=== PATIENT | female | born 1995 | race Caucasian/White ===

== ENCOUNTER 2020-04-12 12:27 | Outpatient (CLI) | payer OTHER | END 2020-04-12 12:28 | disposition home or self-care (01) | LOC: COV 12:27 | PROVIDERS: ATTEND Family Medicine | DX: R07.0 Pain in throat (principal); Z20.828 Contact with and (suspected) exposure to other viral communicable diseases ==

== ENCOUNTER 2020-08-31 08:00 | Outpatient (CLI) | payer OTHER ==
--- NOTE | 2020-08-31 16:10 | XRAY Report ---
PROCEDURE: Foot 3 View LT INDICATIONS: LEFT FOOT SPRAIN TECHNIQUE: 3 views of the foot were acquired. COMPARISON: FINDINGS: Bones: No fractures or dislocations. No suspicious bony lesions. Soft tissues: No tibiotalar joint effusion. Achilles tendon appears normal. IMPRESSION: No visualized acute fracture or dislocation. However, occult injury cannot be excluded. Recommend bar rt interval imaging follow-up in 7-10 days as clinically indicated for additional evaluation. Reviewed by: Symone Erazo MD on 08/31/2020 4:08 PM PDT Approved by: Symone Erazo MD on 08/31/2020 4:08 PM PDT Station ID: [id number]
== END 2020-08-31 23:59 | disposition home or self-care (01) ==
LOC: DI.S 08:00
PROVIDERS: ATTEND Emergency Medicine
DX: S93.622A Sprain of tarsometatarsal ligament of left foot, initial encounter (principal)

== ENCOUNTER 2020-11-01 08:00 | Outpatient (CLI) | payer OTHER ==
[2020-11-01 15:04] LABS: BILIRUBIN,URINE NEGATIVE (NEGATIVE); GLUCOSE, URINE (UA) NEGATIVE (NEGATIVE); KETONES,URINE (UA) NEGATIVE (NEGATIVE); LEUKOCYTE ESTERASE, URINE LARGE (NEGATIVE); NITRITE,URINE NEGATIVE (NEGATIVE); OCCULT BLOOD,URINE LARGE (NEGATIVE); PH,URINE 7.5 PH (5.0-7.5); PROTEIN,URINE NEGATIVE (NEGATIVE); UROBILINOGEN,URINE 0.2 (NORMAL) E.U./dL (NORMAL)
[2020-11-01 15:10] LABS: CLARITY,URINE CLOUDY (CLEAR)
[2020-11-01 15:29] LABS: BACTERIA,URINE Rare /HPF (None Seen); RBC,URINE 0-5 /HPF (0-5); SQUAMOUS EPITHELIAL CELL,UR RARE Squamous (<= Few)
[2020-11-01 15:30] LABS: MUCUS,URINE Few Strands
== END 2020-11-01 23:59 | disposition home or self-care (01) ==
LOC: LAB.S 08:00
PROVIDERS: ATTEND Emergency Medicine
DX: R30.0 Dysuria (principal)
CPT/HCPCS: 81001; 87086

== ENCOUNTER 2021-09-12 20:00 | Emergency (ER) | payer OTHER ==
[2021-09-12] MEDS ORDERED: ONDANSETRON 4 MG/2 ML VIAL IVP STA (20:17)
--- NOTE | 2021-09-12 20:35 | ED Physician Documentation ---
PD HPI FEMALE - Stated complaint Stated Complaint: BLEED/VOMIT/FEVER/ABD PX - Chief complaint Chief Complaint: Abd Pain - History obtained from History obtained from: Patient - History of Present Illness Timing - onset: Today Timing - details: Gradual onset, Waxing and waning Pain level max: 6 Associated symptoms: Vaginal bleeding. 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 She took the first medication yesterday (mifepristone) and today took misoprostol. She took the medication today at approximately 1 PM and subsequently has had increasing pelvic cramping. Her chief complaint at this time is pelvic cramping that is severe and uncontrolled with OTC medication (she took prescribed ibuprofen and called this evening to [facility] and was advised to also take acetaminophen, but this has not provided adequate relief of pelvic cramping pain). She has had vaginal bleeding with some clots, as well as diarrhea. Review of Systems Constitutional: reports: Reviewed and negative GI: reports: Reviewed and negative : reports: Vaginal bleeding. denies: Dysuria, Frequency PD PAST MEDICAL HISTORY - Past Medical History Past Medical History: Yes Respiratory: Asthma - Past Surgical History Past Surgical History: No - Present Medications Home Medications: Ambulatory Orders Medication Instructions Recorded Confirmed LORazepam [Ativan] 0.5 - 1 mg PO HS PRN #10 tablet 09/13/21 traMADol [Ultram] 50 - 100 mg PO Q6H PRN #14 tablet 09/13/21 - Allergies Allergies/Adverse Reactions: Allergies Allergy/AdvReac Type Severity Reaction Status Date / Time Sulfa (Sulfonamide Allergy Unknown Verified 09/12/21 20:12 Antibiotics) - Social History Does the pt smoke?: No Smoking Status: Never smoker Does the pt drink ETOH?: Yes Does the pt have substance abuse?: No - Immunizations Immunizations are current?: Yes PD ED PE NORMAL - Vitals Vital signs reviewed: Yes - General General: Alert and oriented X 3, No acute distress, Well developed/nourished - Cardiac Cardiac: RRR, No murmur - Respiratory Respiratory: No respiratory distress, Clear bilaterally - Abdomen Abdomen: Soft, Non tender - Back Back: No CVA TTP Results - Vitals Vitals: Oxygen O2 Source Room air - Labs Labs: Laboratory Tests 09/12/21 09/12/21 09/12/21 20:30 20:30 20:30 WBC 13.3 H RBC 4.29 Hgb 13.0 Hct 37.3 MCV 86.9 MCH 30.3 MCHC 34.9 RDW 12.4 Plt Count 258 MPV 10.5 Neut # (Auto) 12.1 H Lymph # (Auto) 0.8 L [place] # (Auto) 0.4 Eos # (Auto) 0.0 Baso # (Auto) 0.0 Absolute Nucleated RBC 0.00 Nucleated RBC % 0.0 Sodium 133 L Potassium 3.6 Chloride 100 L Carbon Dioxide 22 Anion Gap 11.0 BUN 9 Creatinine 0.6 Estimated GFR (MDRD) 119 Glucose 114 H Calcium 9.1 HCG, Quant 57597.00 Blood Type 09/12/21 20:30 WBC RBC Hgb Hct MCV MCH MCHC RDW Plt Count MPV Neut # (Auto) Lymph # (Auto) [place] # (Auto) Eos # (Auto) Baso # (Auto) Absolute Nucleated RBC Nucleated RBC % Sodium Potassium Chloride Carbon Dioxide Anion Gap BUN Creatinine Estimated GFR (MDRD) Glucose Calcium HCG, Quant Blood Type A NEGATIVE - Rads (name of study) pelvic US Radiology: Prelim report reviewed, See rad report PD MEDICAL DECISION MAKING - ED course Complexity details: reviewed results, re-evaluated patient, considered differential, d/w patient ED course: chief complaint of pelvic cramping pain after taking misoprostol prescribed by [facility] to terminate 6 week . She is given toradol and morphine IV with zofran IV for prophylaxis against nausea. US shows thickened heterogeneous endometrium. I discussed this case with Dr. Whittington, coagulation operator senior data developer; result of this discussion is patient is safe and appropriate for d/c home, and Dr. Whittington came to ED and evaluated patient. Patient was given second dose of morphine and then dose of lorazepam for anxiety and to augment effect of the morphine. Ultram prescribed and return precautions d/w patient. She is comfortable with plan to d/c on reevaluation. Departure - Departure Disposition: 01 Home, Self Care Clinical Impression: Pelvic cramping Condition: Good Instructions: ED Pelvic Pain UKO Prescriptions: LORazepam [Ativan] 0.5 - 1 mg PO HS PRN #10 tablet PRN Reason: Insomnia traMADol [Ultram] 50 - 100 mg PO Q6H PRN #14 tablet PRN Reason: Pain Comments: The cause of your pelvic pain is the medications provided by [facility]; pelvic cramping, vaginal bleeding, and diarrhea are all expected with the misoprostol. When the pain is not controlled with medications at home, it is appropriate to come to the emergency department for better pain control as you did tonight. The tests performed tonight do not indicate any problems/complications at this time. Prescriptions for tramadol (pain medication) and lorazepam (anti-anxiety medication but being prescribed for you to help with sleep for the next few nights as needed) have been electronically submitted to [facility] in [place]. I am prescribing a short course of narcotic pain medication for you. These are potentially dangerous and addictive medications that should be used carefully. These medications may constipate you. Take an ecqz-yyo-ohkcdmw stool softener (docusate) twice daily with plenty of water while taking these medications. If you go 24 hours without a bowel movement, take rlhz-yzv-zoknfxv miralax, per package instructions. Do not drink or drive while taking these medications. If you received narcotic or sedating medications while in the emergency department, do not drive for 24 hours. Store this medication in a safe, secure place and out of reach of children. It is a violation of federal law to give or sell this medication to another person or to use in a manner other than prescribed. The ED will not refill narcotic prescriptions, including prescriptions lost or stolen. To dispose of unwanted medications: 1. [facility] at [address] in [place] has a medication drop box. They accept prescription medications (in pill form) Saturday through Saturday 9:00 a.m. to 5:00 p.m. 2. The [facility] [employer] accepts prescription medications (in pill form only) for disposal year round. Call for more information. 3. Contact the [facility] for the next [facility] sponsored prescription drug collection event. , [phone], or [phone]; Discharge Date/Time: 09/13/21 01:22
[2021-09-12] MEDS ORDERED: KETOROLAC 30 MG/ML VIAL IVP STA (20:38)
[2021-09-12 20:46] LABS: BASOPHILS % (AUTO) 0.2 %; HCT - HEMATOCRIT 37.3 % (37.0-47.0); LYMPHOCYTES # (AUTO) 0.8 10^3/uL (1.5-3.5); MEAN CORPUSCULAR HEMOGLOBIN 30.3 pg (27.0-31.0); MEAN CORPUSCULAR HGB CONC 34.9 g/dL (32.0-36.0); MEAN CORPUSCULAR VOLUME 86.9 fL (81.0-99.0); MEAN PLATELET VOLUME 10.5 fL (7.9-10.8); MONOCYTES # (AUTO) 0.4 10^3/uL (0.0-1.0); MONOCYTES % (AUTO) 2.9 %; NEUTROPHILS # (AUTO) 12.1 10^3/uL (1.5-6.6); NEUTROPHILS % (AUTO) 90.5 %; PLT - PLATELET COUNT 258 10^3/uL (130-450); RED BLOOD COUNT 4.29 10^6/uL (4.20-5.40); RED CELL DISTRIBUTION WIDTH 12.4 % (12.0-15.0); WHITE BLOOD COUNT 13.3 x10^3/uL (4.8-10.8)
[2021-09-12 21:00] LABS: CALCIUM 9.1 mg/dL (8.5-10.3); CREATININE 0.6 mg/dL (0.4-1.0); POTASSIUM 3.6 mmol/L (3.5-5.0)
[2021-09-12] MEDS ORDERED: MORPHINE 2 MG/ML CARPUJECT IVP STA ×2 (21:07→22:24)
--- NOTE | 2021-09-12 22:45 | Ultrasound Report ---
PROCEDURE: Pelvic w/Transvaginal INDICATIONS: POST PAIN TECHNIQUE: Real-time scanning was performed of the pelvic organs, with image documentation. Additional endovagi nal scanning was necessary due to incomplete visualization of the adnexal and endometrial structures by transabdominal scanning. COMPARISON: None. FINDINGS: Uterus: Uterus is anteverted and measures 8.8 x 5 x 6.1 cm. Endometrium is thickened, measuring up t o 1.7 cm, and heterogeneous in appearance. No definite associated increased vascularity on color Dopp ler interrogation. Ovaries: The right ovary measures 2.9 x 2.3 x 2.7 cm with a related volume of 9.2 mL and the left ov cornelio measures 3.1 x 1 x 2.7 cm with a calculated volume of 4.4 mL. No adnexal masses. There is a small amount of free fluid which appears within physiologic limits IMPRESSION: 1. Thickened heterogeneous appearance of the endometrium. Although no increased internal vascularity is demonstrated, given patient's history, the findings are suspicious for retained products of concep tion. Reviewed by: Zac Griffith MD on 09/12/2021 10:44 PM PDT Approved by: Zac Griffith MD on 09/12/2021 10:44 PM PDT Station ID: [id number]
[2021-09-13] MEDS ORDERED: traMADol 50 MG TABLET PO STA (01:06)
[2021-09-13] MEDS ORDERED: LORazepam 0.5 MG TABLET PO STA (01:06)
[2021-09-13 01:22] VITALS: BP 110/62
== END 2021-09-13 01:22 | disposition home or self-care (01) ==
LOC: ED 20:00
DX: R10.2 Pelvic and perineal pain (principal)
CPT/HCPCS: 36415; 76830; 76856; 80048; 84702; 85025; 86900; 86901; 96374; 96375; 96376; 99284; A9270

== ENCOUNTER 2023-02-02 12:00 | Emergency (ER) | payer MEDICAID, OTHER ==
[2023-02-02 12:13] VITALS: BP 142/99; O2SAT 98
[2023-02-02 12:24] LABS: BASOPHILS # (AUTO) 0.1 10^3/uL (0.0-0.1); EOSINOPHILS # (AUTO) 0.1 10^3/uL (0.0-0.7); EOSINOPHILS % (AUTO) 2.2 %; HCT - HEMATOCRIT 40.4 % (37.0-47.0); HGB - HEMOGLOBIN 13.6 g/dL (12.0-16.0); LYMPHOCYTES # (AUTO) 1.9 10^3/uL (1.5-3.5); MEAN CORPUSCULAR HEMOGLOBIN 29.1 pg (27.0-31.0); MEAN CORPUSCULAR HGB CONC 33.7 g/dL (32.0-36.0); MEAN CORPUSCULAR VOLUME 86.3 fL (81.0-99.0); MEAN PLATELET VOLUME 10.2 fL (7.9-10.8); MONOCYTES # (AUTO) 0.5 10^3/uL (0.0-1.0); MONOCYTES % (AUTO) 9.1 %; NEUTROPHILS # (AUTO) 3.2 10^3/uL (1.5-6.6); NEUTROPHILS % (AUTO) 55.5 %; PLT - PLATELET COUNT 262 10^3/uL (130-450); RED BLOOD COUNT 4.68 10^6/uL (4.20-5.40); RED CELL DISTRIBUTION WIDTH 12.5 % (12.0-15.0); WHITE BLOOD COUNT 5.8 x10^3/uL (4.8-10.8)
[2023-02-02 12:30] LABS: BILIRUBIN,URINE NEGATIVE (NEGATIVE); GLUCOSE, URINE (UA) NEGATIVE (NEGATIVE); KETONES,URINE (UA) NEGATIVE (NEGATIVE); LEUKOCYTE ESTERASE, URINE NEGATIVE (NEGATIVE); NITRITE,URINE NEGATIVE (NEGATIVE); OCCULT BLOOD,URINE NEGATIVE (NEGATIVE); PROTEIN,URINE NEGATIVE (NEGATIVE); UROBILINOGEN,URINE 0.2 (NORMAL) E.U./dL (NORMAL)
[2023-02-02 12:31] LABS: CLARITY,URINE CLEAR (CLEAR); HCG UR QUAL NEGATIVE
[2023-02-02 12:37] LABS: ALBUMIN 4.6 g/dL (3.2-5.5); ALBUMIN/GLOBULIN RATIO 1.7 (1.0-2.2); BILIRUBIN,TOTAL 0.8 mg/dL (0.2-1.0); CALCIUM 9.6 mg/dL (8.5-10.3); CREATININE 0.8 mg/dL (0.6-1.3); POTASSIUM 3.9 mmol/L (3.5-4.5); TOTAL PROTEIN 7.3 g/dL (6.4-8.9)
--- NOTE | 2023-02-02 13:10 | ED Physician Documentation ---
History of Present Illness - Stated complaint Stated Complaint: LOWER RT ABD PX - Chief complaint Chief Complaint: Abd Pain - Additonal information Additional information: 27-year-old female presents emergency department for evaluation of 2 weeks intermittent but now constant right lower quadrant abdominal pain. She states that when it first started it was sharp and stabbing. But mild in intensity only a 1 or 2. Over the course of time its become more persistent now measuring a level 6. She states she is taken nothing for pain and she did not know what she would be treating. She is mostly concerned this could be an ovarian cyst or ovarian cancer as her mom has ovarian cancer. Denies any pertinent past surgical history. Takes no prescribed medications at this time. Review of Systems Constitutional: denies: Fever Throat: reports: Reviewed and negative Cardiac: reports: Reviewed and negative Respiratory: reports: Reviewed and negative GI: reports: Abdominal Pain. denies: Nausea, Vomiting, Constipation : denies: Dysuria Skin: reports: Reviewed and negative Musculoskeletal: reports: Reviewed and negative PD PAST MEDICAL HISTORY - Past Medical History Respiratory: Asthma - Past Surgical History Past Surgical History: No - Present Medications Home Medications: Ambulatory Orders Medication Instructions Recorded Confirmed No Known Home Medications 02/02/23 02/02/23 - Allergies Allergies/Adverse Reactions: Allergies Allergy/AdvReac Type Severity Reaction Status Date / Time Sulfa (Sulfonamide Allergy Unknown Verified 09/12/21 20:12 Antibiotics) - Social History Does the pt smoke?: No Smoking Status: Never smoker Does the pt drink ETOH?: Yes Does the pt have substance abuse?: No - Immunizations Immunizations are current?: Yes PD ED PE NORMAL - General General: Alert and oriented X 3, No acute distress, Well developed/nourished - HEENT HEENT: Atraumatic, Moist mucous membranes - Cardiac Cardiac: RRR, No murmur - Respiratory Respiratory: No respiratory distress, Clear bilaterally - Abdomen Abdomen: Normal bowel sounds, Soft. No: Non tender (minimal tenderness elicited with deep or light palpation; no percussion tenderness. no flank or CV tenderness. negative mcburneys) - Back Back: No CVA TTP - Derm Derm: Normal color - Extremities Extremities: No deformity - Neuro Neuro: Alert and oriented X 3 Eye Opening: Spontaneous Motor: Obeys Commands Verbal: Oriented GCS Score: 15 Results - Vitals Vitals: Vital Signs - 24 hr 02/02/23 12:09 Temperature 36.7 C Heart Rate 55 L Respiratory 16 Rate Blood Pressure 142/99 H O2 Saturation 98 Oxygen O2 Source Room air - Labs Labs: Laboratory Tests 02/02/23 02/02/23 02/02/23 12:19 12:19 12:24 WBC 5.8 RBC 4.68 Hgb 13.6 Hct 40.4 MCV 86.3 MCH 29.1 MCHC 33.7 RDW 12.5 Plt Count 262 MPV 10.2 Neut # (Auto) 3.2 Lymph # (Auto) 1.9 [place] # (Auto) 0.5 Eos # (Auto) 0.1 Baso # (Auto) 0.1 Absolute Nucleated RBC 0.00 Nucleated RBC % 0.0 Sodium 136 Potassium 3.9 Chloride 103 Carbon Dioxide 27 Anion Gap 6.0 BUN 10 Creatinine 0.8 Estimated GFR (MDRD) 85 L Glucose 91 Calcium 9.6 Total Bilirubin 0.8 AST 21 ALT 38 Alkaline Phosphatase 45 Total Protein 7.3 Albumin 4.6 Globulin 2.7 Albumin/Globulin Ratio 1.7 Lipase 72 Urine Color YELLOW Urine Clarity CLEAR Urine pH 7.0 Ur Specific [place] <=1.005 Urine Protein NEGATIVE Urine Glucose (UA) NEGATIVE Urine Ketones NEGATIVE Urine Occult Blood NEGATIVE Urine Nitrite NEGATIVE Urine Bilirubin NEGATIVE Urine Urobilinogen 0.2 (NORMAL) Ur Leukocyte Esterase NEGATIVE Ur Microscopic Review NOT INDICATED Urine Culture Comments NOT INDICATED Urine HCG, Qual NEGATIVE - Rads (name of study) CT abd Relevant Findings:: Final report received (Normal appendix. No focal right lower quadrant inflammatory changes seen. 2.1 cm rim-enhancing left ovarian cyst which is likely related to a hemorrhagic cyst.) pelvic US Relevant Findings:: Final report received (1.7 cm left ovarian cyst.) PD Medical Decision Making - ED course Complexity details: reviewed results, re-evaluated patient, d/w patient ED course: 27-year-old female presents the emergency department for evaluation of 2 weeks right lower quadrant abdominal pain. Initially intermittent but then when more constant. No fevers nausea or vomiting. She was concerned she could have ovarian cancer or cysts. On exam there was some minimal but nonperitoneal right lower quadrant tenderness negative McBurney's. A exam of her laboratory results showed no abnormalities with the hemoglobin or electrolytes. Urinalysis showed no signs of infection. She is not . Subsequently I discussed with patient the benign abdominal exam and likelihood that this intermittent pain may represent ovarian cysts. However she was quite concerned about the possibility of cancer given her mother's recent diagnosis. Subsequently a CT of the abdomen was completed that showed a left ovarian cysts and in follow-up an ultrasound of the abdomen also showed a left ovarian cyst but no obvious pathology on the right side of the abdomen. I discussed these findings with the patient advise follow-up with PCP. Recommend Tylenol Motrin for analgesia. The usual emergent return precautions for worsening symptoms was discussed. Departure - Departure Disposition: Home, Self Care Clinical Impression: RLQ abdominal pain Condition: Stable Record reviewed to determine appropriate education?: Yes Comments: Mar you have had about 2 weeks of pain in the right lower quadrant of your abdomen. As discussed at the bedside your laboratory results were all without worrisome findings. CT of the abdomen showed no findings of appendicitis kidney or ureter stones. There was a finding made of a 1.7 cm left ovarian cyst. However no ovarian cyst was seen on the right. Ultrasound also confirmed this result. At this time is not clear what the cause of your lower abdominal discomfort is. I recommend taking Tylenol or Motrin [id number]-[id number] for discomfort. Please discuss this ED visit with your primary care doctor. Reasons to return to the emergency department would be the development of any fever, severe abdominal pain, uncontrolled vomiting, black or bloody stools. Forms: PCP List
--- NOTE | 2023-02-02 14:26 | CT Report ---
PROCEDURE: ABDOMEN/PELVIS W INDICATIONS: RLQ abd pain CONTRAST: 100ml omni 300 TECHNIQUE: After the administration of IV contrast, 5 mm thick sections acquired from the diaphragms to the symp hysis. 5 mm thick coronal and sagittal reformats were acquired. For radiation dose reduction, the f ollowing was used: automated exposure control, adjustment of mA and/or kV according to patient size. COMPARISON: Pelvic ultrasound, 09/12/2021 FINDINGS: Image quality: Excellent. Lung bases and heart: Unremarkable. Liver: No solid mass. Gallbladder and biliary tree: Within normal limits. Spleen: No splenomegaly. Pancreas: No pancreatic ductal dilation. Adrenals: No adrenal nodule. Kidneys and ureters: No hydronephrosis. No renal cystic lesion which requires follow up. No solid mas s. Bowel and peritoneum: A normal appendix is seen. No focal right lower quadrant inflammatory change is seen. No bowel distension. No pathologic free fluid. Lymph nodes: No central or retroperitoneal adenopathy. Vessels: No infrarenal aortic aneurysm. PELVIS Reproductive organs: The uterus is within normal limits. There is a rim-enhancing left ovarian cyst m easuring 2.1 cm. A smaller free fluid can be seen within the pelvis, which is considered to be within physiologic limi ts. Bladder: No abnormal wall thickening, accounting for underdistension. Pelvic lymph nodes: No pelvic adenopathy by size criteria. Bones: No aggressive osseous abnormality. Other: No significant ventral or inguinal hernia. IMPRESSION: Normal appendix. No focal right lower quadrant inflammatory change is seen. 2.1 cm rim enhancing left ovarian cyst, which is likely related to hemorrhagic cyst. Reviewed by: Gregory Dorman MD on 02/02/2023 1:25 PM AKARYA Approved by: Gregory Dorman MD on 02/02/2023 1:25 PM NASEEM Station ID: [id number]
--- NOTE | 2023-02-02 15:13 | Ultrasound Report ---
PROCEDURE: Pelvic w/Transvag+Doppler Comp INDICATIONS: pelvic pain, R; ? cyst. doubt torsion TECHNIQUE: Real-time scanning was performed of the pelvic organs, with image documentation. Additional endovagi nal scanning was necessary due to incomplete visualization of the adnexal and endometrial structures by transabdominal scanning. Doppler interrogation was performed of the ovaries bilaterally. COMPARISON: None. FINDINGS: Uterus: Uterus is anteverted and normal in size at 7.1 x 5.3 x 4.5 cm. The myometrium is heterogene ous. The endometrium measures up to 19 mm. No abnormal vascularity can be seen along the endometrial stripe. Ovaries: The right ovary measures 2.1 x 1.9 x 2.1 cm, with a calculated ovarian volume of 4.5 cc. The left ovary measures 3.5 x 2.6 x 2.3 cm, with a calculated ovarian volume of 10.5 cc. The left ov cornelio demonstrates a likely corpus luteum cyst measuring up to 17 mm. Less than 12 follicles can be seen in each ovary. No adnexal masses are seen. No cystic lesions janene uring greater than 3 cm. Normal-appearing venous and arterial waveforms are confirmed to each ovary. Other: A focus of free fluid can be seen within the right cul-de-sac adjacent to the ovary, measuring 2.3 x 1.4 x 1.7 cm. IMPRESSION: Negative for ovarian torsion. Likely left ovarian corpus luteum, 17 mm. There is a mild amount of free fluid seen adjacent to the right ovary. Mildly thickened endometrial stripe, without abnormal vascularity. Note: Concordant preliminary findings given by the production aide upon the completion of the examination to Kathia Dalton. Reviewed by: Gregory Dorman MD on 02/02/2023 2:12 PM NASEEM Approved by: Gregory Dorman MD on 02/02/2023 2:12 PM NASEEM Station ID: [id number]
[2023-02-02] MEDS ORDERED: iohexoL-300 100 ML VIAL IVP ONE (19:20)
== END 2023-02-02 15:32 | disposition home or self-care (01) ==
LOC: ED 12:00
DX: R10.31 Right lower quadrant pain (principal)
CPT/HCPCS: 36415; 74177; 76830; 76856; 80053; 81003; 81025; 83690; 85025; 93975; 99283; 99284; Q9967; 81001; 87086

== ENCOUNTER 2023-07-12 18:03 | Emergency (ER) | payer BC, OTHER ==
--- NOTE | 2023-07-12 18:21 | ED Physician Documentation ---
PD HPI ABD PAIN - Stated complaint Stated Complaint: R SIDE PX - Chief complaint Chief Complaint: Abd Pain - History obtained from History obtained from: Patient - Additional information Additional information: 28-year-old who is generally healthy with history of iron deficiency developed acute onset right flank pain radiating mildly to the right upper quadrant at 10 AM today. There is no inciting factor. She is never had this before. No shortness of breath. Seen at the clinic and had a reportedly normal urine dip that was negative. Doubts possibility of . Does note some hair brooks ges lately but that is unrelated. PD PAST MEDICAL HISTORY - Past Medical History Past Medical History: Yes Respiratory: Asthma - Past Surgical History Past Surgical History: No - Present Medications Home Medications: Ambulatory Orders Medication Instructions Recorded Confirmed Cyclobenzaprine [Flexeril] 10 mg PO TID PRN #20 tablet 07/12/23 Ibuprofen [Motrin] 800 mg PO Q8H PRN #30 tablet 07/12/23 - Allergies Allergies/Adverse Reactions: Allergies Allergy/AdvReac Type Severity Reaction Status Date / Time Sulfa (Sulfonamide Allergy Unknown Verified 07/12/23 18:11 Antibiotics) - Social History Does the pt smoke?: No Smoking Status: Never smoker Does the pt drink ETOH?: Yes Does the pt have substance abuse?: No - Immunizations Immunizations are current?: Yes PD ED PE NORMAL - Vitals Vital signs reviewed: Yes - General General: Alert and oriented X 3, No acute distress - Cardiac Cardiac: RRR, No murmur - Respiratory Respiratory: No respiratory distress, Clear bilaterally - Abdomen Abdomen: Normal bowel sounds, Soft, Non tender - Back Back: Other (Mild tenderness over the right flank, no skin changes) - Extremities Extremities: No edema, No calf tenderness / cord - Neuro Neuro: Alert and oriented X 3 Results - Vitals Vitals: Vital Signs - 24 hr 07/12/23 07/12/23 07/12/23 18:09 19:10 19:59 Temperature 36.7 C Heart Rate 54 L 58 L 84 Respiratory 16 18 20 Rate Blood Pressure 132/87 H 122/86 H 141/94 H O2 Saturation 100 96 100 Oxygen O2 Source Room air - Labs Labs: Laboratory Tests 07/12/23 07/12/23 07/12/23 18:13 18:17 18:30 WBC 6.4 RBC 4.22 Hgb 12.5 Hct 37.4 MCV 88.6 MCH 29.6 MCHC 33.4 RDW 12.9 Plt Count 252 MPV 10.3 Neut # (Auto) 3.4 Lymph # (Auto) 2.3 [place] # (Auto) 0.6 Eos # (Auto) 0.2 Baso # (Auto) 0.1 Absolute Nucleated RBC 0.00 Nucleated RBC % 0.0 Sodium 137 Potassium 3.7 Chloride 105 Carbon Dioxide 28 Anion Gap 4.0 L BUN 13 Creatinine 0.8 Estimated GFR (MDRD) 84 L Glucose 98 Calcium 9.4 Total Bilirubin 0.3 AST 16 ALT 25 Alkaline Phosphatase 39 L Total Protein 6.8 Albumin 4.3 Globulin 2.5 Albumin/Globulin Ratio 1.7 TSH 2.10 Urine Color YELLOW Urine Clarity CLEAR Urine pH 7.0 Ur Specific [place] <=1.005 Urine Protein NEGATIVE Urine Glucose (UA) NEGATIVE Urine Ketones NEGATIVE Urine Occult Blood NEGATIVE Urine Nitrite NEGATIVE Urine Bilirubin NEGATIVE Urine Urobilinogen 0.2 (NORMAL) Ur Leukocyte Esterase NEGATIVE Ur Microscopic Review NOT INDICATED Urine Culture Comments NOT INDICATED Urine HCG, Qual NEGATIVE - Rads (name of study) CT a/p Relevant Findings:: Final report received, EMP independent interpretation of test PD Medical Decision Making - ED course ED course: She presents for the evaluation of back pain, she has a benign abdominal exam, it is on the right and given the location and the concern prehospital with us for renal colic. Differential would also include shingles although there is no evidence of this, PE is deemed less likely because she is not short of breath nor tachycardic nor hypoxic and has no leg swelling. Extensive workup was done with CT imaging, and labs. CT imaging was negative, labs were notable for normal CBC, CMP, urine, and negative test. She was feeling better with pain medication here. On reexamination she was tender over the right upper lumbar lateral musculature and has pain with motion more consistent with muscular back pain. Given close return precautions. Departure - Departure Disposition: 01 Home, Self Care Clinical Impression: Back pain Qualifiers: Back pain location: low back pain Chronicity: acute Back pain laterality: right Sciatica presence: without sciatica Qualified Code(s): M54.50 - Low back pain, unspecified Condition: Good Record reviewed to determine appropriate education?: Yes Instructions: ED Neck Back Pain General Prescriptions: Cyclobenzaprine [Flexeril] 10 mg PO TID PRN #20 tablet PRN Reason: Spasms Ibuprofen [Motrin] 800 mg PO Q8H PRN #30 tablet PRN Reason: PAIN &/OR FEVER Comments: Your CT scan and labs were normal/unremarkable. By process of elimination I think you have musculoskeletal right mid back pain. Call your doctor to arrange a follow-up appointment, make the next available appointment. In the interim, return anytime if worse or if new symptoms develop. I sent prescriptions electronically to the [facility] in [place]. Forms: PCP List
[2023-07-12 18:29] LABS: BILIRUBIN,URINE NEGATIVE (NEGATIVE); GLUCOSE, URINE (UA) NEGATIVE (NEGATIVE); KETONES,URINE (UA) NEGATIVE (NEGATIVE); LEUKOCYTE ESTERASE, URINE NEGATIVE (NEGATIVE); NITRITE,URINE NEGATIVE (NEGATIVE); OCCULT BLOOD,URINE NEGATIVE (NEGATIVE); PROTEIN,URINE NEGATIVE (NEGATIVE); UROBILINOGEN,URINE 0.2 (NORMAL) E.U./dL (NORMAL)
[2023-07-12 18:30] LABS: CLARITY,URINE CLEAR (CLEAR); HCG UR QUAL NEGATIVE
[2023-07-12 18:34] LABS: BASOPHILS # (AUTO) 0.1 10^3/uL (0.0-0.1); BASOPHILS % (AUTO) 0.8 %; EOSINOPHILS # (AUTO) 0.2 10^3/uL (0.0-0.7); EOSINOPHILS % (AUTO) 3.1 %; HCT - HEMATOCRIT 37.4 % (37.0-47.0); HGB - HEMOGLOBIN 12.5 g/dL (12.0-16.0); LYMPHOCYTES # (AUTO) 2.3 10^3/uL (1.5-3.5); MEAN CORPUSCULAR HEMOGLOBIN 29.6 pg (27.0-31.0); MEAN CORPUSCULAR HGB CONC 33.4 g/dL (32.0-36.0); MEAN CORPUSCULAR VOLUME 88.6 fL (81.0-99.0); MEAN PLATELET VOLUME 10.3 fL (7.9-10.8); MONOCYTES # (AUTO) 0.6 10^3/uL (0.0-1.0); MONOCYTES % (AUTO) 8.7 %; NEUTROPHILS # (AUTO) 3.4 10^3/uL (1.5-6.6); NEUTROPHILS % (AUTO) 52.1 %; PLT - PLATELET COUNT 252 10^3/uL (130-450); RED BLOOD COUNT 4.22 10^6/uL (4.20-5.40); RED CELL DISTRIBUTION WIDTH 12.9 % (12.0-15.0); WHITE BLOOD COUNT 6.4 x10^3/uL (4.8-10.8)
[2023-07-12] MEDS: HYDROmorphone 1 MG/ML CARPUJECT IVP STA ×2 (18:40→19:51)
[2023-07-12] MEDS: KETOROLAC 15 MG/ML VIAL IVP STA (18:41)
[2023-07-12] MEDS ORDERED: iohexoL-300 100 ML VIAL ONE (18:45)
[2023-07-12 18:49] LABS: ALBUMIN 4.3 g/dL (3.2-5.5); ALBUMIN/GLOBULIN RATIO 1.7 (1.0-2.2); BILIRUBIN,TOTAL 0.3 mg/dL (0.2-1.0); CALCIUM 9.4 mg/dL (8.5-10.3); CREATININE 0.8 mg/dL (0.6-1.3); POTASSIUM 3.7 mmol/L (3.5-4.5); TOTAL PROTEIN 6.8 g/dL (6.4-8.9)
[2023-07-12 19:03] LABS: THYROID STIMULATING HORMONE 2.1 uIU/mL (0.34-5.60)
[2023-07-12] MEDS: iohexoL-300 100 ML VIAL IVP ONE (19:34)
--- NOTE | 2023-07-12 19:50 | CT Report ---
PROCEDURE: Abdomen/Pelvis W INDICATIONS: R flank pain CONTRAST: 100 ML OMNI 300 TECHNIQUE: After the administration of intravenous contrast, a CT scan of the abdomen and pelvis was performed. Images were recorded and evaluated at appropriate window settings. Reformats: coronal and sagittal. F or radiation dose reduction, the following was used: automated exposure control, adjustment of mA and /or kV according to patient size. COMPARISON: CT abdomen pelvis 02/02/2023. FINDINGS: Image quality: Diagnostic. Lower chest: Unremarkable. Liver: No solid mass. Gallbladder and biliary tree: No radiopaque stones or wall thickening. No biliary dilation. Spleen: No splenomegaly. Pancreas: No pancreatic ductal dilation. No peripancreatic fluid collection. Adrenals: No adrenal nodule. Kidneys and ureters: No hydronephrosis. No renal cystic lesion which requires follow up. No solid mas s. Stomach, bowel and peritoneum: No bowel distension. No pathologic free fluid. The appendix is not dil ated. Lymph nodes: No central or retroperitoneal adenopathy. Vessels: No infrarenal aortic aneurysm. PELVIS Reproductive organs: Anteverted uterus. No ovarian cyst identified. Bladder: Distended. No stone. Pelvic lymph nodes: No pelvic adenopathy by size criteria. Bones: No aggressive osseous abnormality. Other: No significant ventral or inguinal hernia. IMPRESSION: No acute abnormality identified. Normal appendix. No free fluid. Reviewed by: Bharat Wiley MD on 07/12/2023 7:48 PM PDT Approved by: Bharat Wiley MD on 07/12/2023 7:48 PM PDT Station ID: [id number]
[2023-07-12] MEDS: ONDANSETRON 4 MG/2 ML VIAL IVP STA (19:51)
[2023-07-12] MEDS: CYCLOBENZAPRINE 10 MG Prepack 2 PO STA (20:16)
[2023-07-12 20:25] VITALS: BP 124/74; O2SAT 99
== END 2023-07-12 20:22 | disposition home or self-care (01) ==
LOC: ED 18:03
DX: M54.50 Low back pain, unspecified (principal)
CPT/HCPCS: 36415; 74177; 80053; 81003; 81025; 84443; 85025; 96374; 96375; 96376; 99283; 99284; J1170; Q9967; 81001; 87086

== ENCOUNTER 2023-12-05 13:45 | Emergency (ER) | payer BC, MEDICAID ==
--- NOTE | 2023-12-05 14:47 | ED Physician Documentation ---
PD HPI HEENT - Stated complaint Stated Complaint: BILAT HEARING MUFFLED - Chief complaint Chief Complaint: Heent - Additional information Additional information: 28-year-old female with history of asthma presents emergency department for bila teral muffled hearing. Patient says that she got an earwax removal kit from the pharmacy and put drops in both of her ears and was digging at her left ear she said that she got a lot of earwax out but now she is having decreased left ear hearing. She has no pain there is some minor irritation to the left ear but no fevers or chills. Patient says that she had COVID about a week ago and has been having this muffled hearing since then. Says that she is overall feeling better. No shortness of breath no fevers chills no chest pain. PD PAST MEDICAL HISTORY - Past Medical History Past Medical History: Yes Respiratory: Asthma - Past Surgical History Past Surgical History: No - Present Medications Home Medications: Ambulatory Orders Medication Instructions Recorded Confirmed Cyclobenzaprine [Flexeril] 10 mg PO TID PRN #20 tablet 07/12/23 Ibuprofen [Motrin] 800 mg PO Q8H PRN #30 tablet 07/12/23 Ofloxacin [Ofloxacin Otic drops] 10 ml LEFTEAR DAILY 7 Days #10 ml 12/05/23 - Allergies Allergies/Adverse Reactions: Allergies Allergy/AdvReac Type Severity Reaction Status Date / Time Sulfa (Sulfonamide Allergy Unknown Verified 12/05/23 14:35 Antibiotics) - Social History Does the pt smoke?: No Smoking Status: Never smoker Does the pt drink ETOH?: Yes Does the pt have substance abuse?: No - Immunizations Immunizations are current?: Yes - POLST Patient has POLST: No PD ED PE NORMAL - Vitals Vital signs reviewed: Yes - General General: Alert and oriented X 3, No acute distress, Well developed/nourished - HEENT HEENT: Atraumatic, PERRL, Moist mucous membranes - Cardiac Cardiac: RRR - Respiratory Respiratory: No respiratory distress PD ED PE EXPANDED - HEENT HEENT: Other (Right ear: Normal tympanic membrane intact no external ear irritation bleeding or swelling.) Results - Vitals Vitals: Vital Signs - 24 hr 12/05/23 12/05/23 13:54 15:17 Temperature 36.8 C Heart Rate 60 65 Respiratory 16 16 Rate Blood Pressure 142/79 H 114/63 O2 Saturation 99 100 Oxygen O2 Source Room air PD Medical Decision Making - ED course ED course: 28-year-old female presents emergency department for bilateral muffled hearing. Patient is most likely experiencing eustachian tube dysfunction as she recently is getting over COVID. On exam she does not have cerumen impaction tympanic membranes are visualized no ruptured tympanic membrane does not appear to be an otitis media no erythema of the TM no pain. On the left ear there is some irritation to the external ear canal from patient likely picking at her ears. She was given some ofloxacin drops because of this and prescription was sent to her preferred pharmacy. Patient was told to start taking Zyrtec, Flonase, Sudafed to see if this helps with her eustachian tube dysfunction. She is told to establish care with primary care provider and follow-up with ENT as needed if after a month she continues to have muffled hearing. All questions answered patient safe for discharge. Departure - Departure Disposition: 01 Home, Self Care Clinical Impression: Eustachian tube dysfunction Qualifiers: Laterality: bilateral Qualified Code(s): H69.93 - Unspecified Eustachian tube disorder, bilateral Left ear injury Qualifiers: Encounter type: initial encounter Qualified Code(s): S09.91XA - Unspecified injury of ear, initial encounter Instructions: ED Otitis Externa Prescriptions: Ofloxacin [Ofloxacin Otic drops] 10 ml LEFTEAR DAILY 7 Days #10 ml Comments: Thank you for trusting us with your care. Your left ear does have some irritation most likely from your trying to take out the earwax we have prescribed you some ofloxacin drops we will put 10 drops in your left ear daily for the next 7 days. As we discussed I would still encourage you to get established with a primary care provider outpatient as you may need an ear nose and throat referral if after 1 month of muffled hearing. You can take things like Zyrtec daily, Flonase daily, Sudafed daily for the next couple days to see if this helps but overall time is going to be what helps this the most. Please come back to the ER if you are having any ear pain, fevers or chills nausea vomiting or any other concerning emergent symptoms. Forms: PCP List Discharge Date/Time: 12/05/23 15:17
[2023-12-05] MEDS: OFLOXACIN 0.3% OPHTH DROPS LEFTEAR STA (15:03)
[2023-12-05 15:20] VITALS: BP 114/63; O2SAT 100
== END 2023-12-05 15:17 | disposition home or self-care (01) ==
LOC: ED 13:45
DX: H69.93 Unspecified Eustachian tube disorder, bilateral (principal); S09.91XA Unspecified injury of ear, initial encounter; W44.9XXA Unspecified foreign body entering into or through a natural orifice, initial encounter; Y93.E8 Activity, other personal hygiene
CPT/HCPCS: 99283; A9270